=== PATIENT | male | born 1970 | race Hispanic/Latino ===

== ENCOUNTER 2017-12-11 05:11 | Inpatient (IN) | payer MEDICARE, OTHER ==
[~2017-12-11] VITALS: Ht 167.6 cm; Wt 136.3 kg
[2017-12-11 06:29] LABS: BASOPHILS % (AUTO) 0.7 % (0.0-5.0); EOSINOPHILS % (AUTO) 2.2 % (0.0-8.0); HEMATOCRIT 40.9 % (42-54); MEAN CORPUSCULAR HEMOGLOBIN 31.6 pg (27.0-33.0); MEAN CORPUSCULAR HGB CONC 34.1 g/dL (32.0-36.0); MEAN CORPUSCULAR VOLUME 92.6 fL (79-99); MONOCYTES % (AUTO) 12.3 % (3.0-13.0); NEUTROPHILS % (AUTO) 51.8 % (40.0-77.0); PLATELET COUNT (AUTO) 366 K/uL (130-400); RED BLOOD CELL COUNT(AUTO) 4.42 MIL/uL (4.50-6.20); WHITE BLOOD COUNT (AUTO) 12.9 K/uL (4.8-10.8)
[2017-12-11 06:41] LABS: CREATININE 1.2 mg/dL (0.5-1.5); POTASSIUM 3.9 mmol/L (3.5-5.1)
[2017-12-11 06:47] LABS: ALBUMIN 3.7 g/dL (3.5-5.0); BILIRUBIN,DIRECT 0.1 mg/dL (0.0-0.3); BILIRUBIN,TOTAL 0.2 mg/dL (0.2-1.0); TOTAL PROTEIN, SERUM 7.2 g/dL (6.0-8.3)
[2017-12-11] MEDS ORDERED: SODIUM CHLORIDE 0.9% 1000ML 1,000 ML IV ONE ×2 (06:59→09:43)
[2017-12-11 07:16] LABS: INR 0.98 (0.85-1.15); PARTIAL THROMBOPLASTIN TIME 28.8 SEC (26.3-35.5); PROTHROMBIN TIME 10.3 SEC (9.6-11.6)
[2017-12-11] MEDS ORDERED: CEFTRIAXONE SODIUM 2 GM VIAL ONE (07:34)
[2017-12-11] MEDS ORDERED: SODIUM CHLORIDE 0.9% 100 ML IV ONE (11:23)
[2017-12-11 11:37] LABS: BASOPHILS % (AUTO) 0.7 % (0.0-5.0); EOSINOPHILS % (AUTO) 1.9 % (0.0-8.0); HEMATOCRIT 37.4 % (42-54); MEAN CORPUSCULAR HEMOGLOBIN 32.3 pg (27.0-33.0); MEAN CORPUSCULAR HGB CONC 34.9 g/dL (32.0-36.0); MEAN CORPUSCULAR VOLUME 92.7 fL (79-99); MONOCYTES % (AUTO) 12.1 % (3.0-13.0); NEUTROPHILS % (AUTO) 47.3 % (40.0-77.0); NUCLEATED RED BLOOD CELLS 0.1 % (0.0-0.19); PLATELET COUNT (AUTO) 361 K/uL (130-400); RED BLOOD CELL COUNT(AUTO) 4.04 MIL/uL (4.50-6.20); RED CELL DISTRIBUTION WIDTH 14.4 % (11.0-15.5); WHITE BLOOD COUNT (AUTO) 12.5 K/uL (4.8-10.8)
[2017-12-11 12:41] VITALS: BP 134/92
[2017-12-11] MEDS: SODIUM CHLORIDE 0.9% 1000ML 1,000 ML IV SCH (13:30)
[2017-12-11] MEDS ORDERED: ONDANSETRON HCL 4 MG/2 ML VIAL IVP PRN (13:45)
[2017-12-11] MEDS ORDERED: PANTOPRAZOLE 40 MG/VIAL IVP SCH (14:00)
[2017-12-11 16:00] VITALS: BP 149/82
[2017-12-11 17:10] LABS: HEMATOCRIT 38.3 % (42-54)
[2017-12-11] MEDS ORDERED: ATOR10 PO (18:15)
[2017-12-11] MEDS ORDERED: VALA500T38 PO (18:15)
[2017-12-11] MEDS ORDERED: LOSA100T29 PO (18:15)
[2017-12-11] MEDS ORDERED: PANT40TA25 PO (18:15)
[2017-12-11] MEDS ORDERED: METF10004 PO (18:15)
[2017-12-11 19:30] VITALS: BP 131/88
[2017-12-11] MEDS ORDERED: PANTOPRAZOLE SODIUM 80 MG in NS 100ML IVP SCH (21:00)
[2017-12-11 23:26] VITALS: BP 139/88
[2017-12-11] MEDS ORDERED: HYDRALAZINE HCL 20 MG/ML VIAL IM PRN (23:30)
[2017-12-12] VITALS (21 sets, daily range): BP systolic 101–136; BP diastolic 61–97
[2017-12-12] MEDS: SODIUM CHLORIDE 0.9% 1000ML 1,000 ML IV SCH ×2 (01:32→16:10)
[2017-12-12 03:57] LABS: HEMATOCRIT 36.9 % (42-54); MEAN CORPUSCULAR HEMOGLOBIN 31.5 pg (27.0-33.0); MEAN CORPUSCULAR HGB CONC 33.7 g/dL (32.0-36.0); MEAN CORPUSCULAR VOLUME 93.5 fL (79-99); NUCLEATED RED BLOOD CELLS 0.1 % (0.0-0.19); PLATELET COUNT (AUTO) 351 K/uL (130-400); RED BLOOD CELL COUNT(AUTO) 3.95 MIL/uL (4.50-6.20); RED CELL DISTRIBUTION WIDTH 14.3 % (11.0-15.5); WHITE BLOOD COUNT (AUTO) 10.6 K/uL (4.8-10.8)
[2017-12-12 04:17] LABS: CREATININE 1.2 mg/dL (0.5-1.5); MAGNESIUM 1.8 mg/dL (1.80-2.40)
[2017-12-12] MEDS ORDERED: LIDOCAINE HCL-MPF 1% 2ML VIAL IVP PRN (05:15)
[2017-12-12] MEDS ORDERED: POTASSIUM CHLORIDE 20MEQ/100ML 100 ML IV PRN (05:15)
[2017-12-12] MEDS ORDERED: POTASSIUM CHLORIDE 10% ELIXIR 20 MEQ/15 ML UDCUP PO PRN (05:15)
[2017-12-12] MEDS ORDERED: MAGNESIUM 2GM PREMIX 50ML 50 ML IV ONE ×2 (05:15→08:15)
[2017-12-12] MEDS ORDERED: POTASSIUM CHLORIDE 20 MEQ ERTAB PO PRN (05:15)
[2017-12-12] MEDS: INSULIN HUMULIN R 100 UNIT/ML 3ML SQ SCH ×4 (06:42→20:28)
[2017-12-12] MEDS ORDERED: MEPERIDINE-PF 50 MG/ML SYG ONE (12:57)
[2017-12-12] MEDS ORDERED: MIDAZOLAM HCL 1 MG/ML 2ML VIAL ONE (12:57)
[2017-12-12] MEDS ORDERED: PROPOFOL 10 MG/ML 20ML VIAL IV ONE (13:03)
[2017-12-12] MEDS: PANTOPRAZOLE SODIUM 40 MG TABLET.DR PO SCH (16:48)
[2017-12-13 03:55] VITALS: BP 137/79
[2017-12-13] MEDS: SODIUM CHLORIDE 0.9% 1000ML 1,000 ML IV SCH (05:30)
[2017-12-13] MEDS: PANTOPRAZOLE SODIUM 40 MG TABLET.DR PO SCH (06:02)
[2017-12-13] MEDS: INSULIN HUMULIN R 100 UNIT/ML 3ML SQ SCH (06:02)
[2017-12-13 07:35] VITALS: BP 126/78
[2017-12-13] MEDS ORDERED: PANT40SU PO (10:03)
== END 2017-12-13 11:15 | disposition home or self-care (01) | DRG 381 ==
LOC: EDH 05:11 → EDHIP 07:28 → 2AH 12:46
PROVIDERS: ADMIT Family Medicine; ATTEND Family Medicine
PROC: 0DJ08ZZ Inspection of Upper Intestinal Tract, Via Natural or Artificial Opening Endoscopic (ICD-10-PCS; principal; 2017-12-12)
DX: K22.11 Ulcer of esophagus with bleeding (principal); D62 Acute posthemorrhagic anemia; Z94.84 Stem cells transplant status; C85.10 Unspecified B-cell lymphoma, unspecified site; K29.01 Acute gastritis with bleeding; K22.70 Barrett's esophagus without dysplasia; K92.0 Hematemesis; F17.200 Nicotine dependence, unspecified, uncomplicated; E11.9 Type 2 diabetes mellitus without complications; I10 Essential (primary) hypertension; F14.90 Cocaine use, unspecified, uncomplicated; E78.5 Hyperlipidemia, unspecified; E66.01 Morbid (severe) obesity due to excess calories; Z85.01 Personal history of malignant neoplasm of esophagus; Z92.3 Personal history of irradiation; Z92.21 Personal history of antineoplastic chemotherapy; Z90.81 Acquired absence of spleen; Z83.3 Family history of diabetes mellitus; Z82.49 Family history of ischemic heart disease and other diseases of the circulatory system
CPT/HCPCS: 36415; 74176; 80048; 80076; 82550; 82948; 83690; 83735; 84484; 85014; 85018; 85025; 85027; 85610; 85730; 86677; 86850; 86900; 86901; 87040; 93005; C9113; J0696; J2175; J2250; J2704; J7030

== ENCOUNTER 2018-07-29 05:41 | Day surgery (SDC) | payer OTHER ==
[2018-07-29] VITALS (8 sets, daily range): BP systolic 120–146; BP diastolic 71–91
[~2018-07-29] VITALS: Ht 165.1 cm; Wt 135.8 kg
[~2018-07-29 05:41] MED LIST: ATOR10 PO; GLYB5TAB8 PO; LOSA100T58 PO; METF-446 PO; OMEP40CA37 PO; VALA500T38 PO
[2018-07-29] MEDS ORDERED: SODIUM CHLORIDE 0.9% 1000ML 1,000 ML IV ONE (05:45)
[2018-07-29] MEDS ORDERED: PROPOFOL 10 MG/ML 20ML VIAL IV ONE (06:33)
[2018-07-29] MEDS ORDERED: GLYCOPYRROLATE 0.2 MG/ML 5 ML VIAL ONE (06:35)
== END 2018-07-29 07:45 | disposition home or self-care (01) ==
LOC: DAH 05:41
PROVIDERS: ATTEND Internal Medicine
DX: K29.50 Unspecified chronic gastritis without bleeding (principal); K44.9 Diaphragmatic hernia without obstruction or gangrene; K22.70 Barrett's esophagus without dysplasia; K31.89 Other diseases of stomach and duodenum; Z68.42 Body mass index [BMI] 45.0-49.9, adult; I10 Essential (primary) hypertension; Z85.01 Personal history of malignant neoplasm of esophagus; Z79.899 Other long term (current) drug therapy; Z98.890 Other specified postprocedural states; E11.9 Type 2 diabetes mellitus without complications
CPT/HCPCS: 43239; 82948; 88305; A4606; J2704; J3490; J7030

== ENCOUNTER 2018-10-01 21:38 | Emergency (ER) | payer OTHER ==
[2018-10-01 22:33] LABS: RAPID GROUP A STREP NEGATIVE (NEGATIVE)
[2018-10-01] MEDS ORDERED: LIDOCAINE HCL-MPF 1% 2ML VIAL ONE (23:13)
[2018-10-01] MEDS ORDERED: CEFTRIAXONE SODIUM 1 GM ONE (23:13)
[2018-10-01] MEDS ORDERED: ACETAMINOPHEN EXTRA STRENGTH 500 MG TABLET ONE (23:13)
== END 2018-10-01 23:23 | disposition home or self-care (01) ==
LOC: EDH 21:38
DX: J18.9 Pneumonia, unspecified organism (principal); I10 Essential (primary) hypertension; E11.9 Type 2 diabetes mellitus without complications; E78.5 Hyperlipidemia, unspecified; Z90.49 Acquired absence of other specified parts of digestive tract
CPT/HCPCS: 71045; 87804 ×2; 87880; 96372; 99284; J0696; J3490